=== PATIENT | male | born 1965 | race American Indian/Alaskan Native ===

== ENCOUNTER 2016-10-01 06:40 | Day surgery (SDC) | payer OTHER ==
[~2016-10-01 06:40] MED LIST: Dextrose 5%-0.45% NaCl 1,000 ML IV SCH; Midazolam 1 MG/ML 2 ML SDV ONE; Sodium Chloride 0.9% 10 ML Syringe FLUSH PRN; fentaNYL 100 MCG/2 ML SDV ONE
[2016-10-01] MEDS ORDERED: fentaNYL 100 MCG/2 ML SDV IV ONE ×4 (07:24→17:03)
[2016-10-01] MEDS ORDERED: Midazolam 1 MG/ML 2 ML SDV IV ONE ×7 (07:25→17:03)
--- NOTE | 2016-10-01 08:26 | OR ---
DATE: 10/01/2016 PROCEDURE: Total colonoscopy. INSTRUMENT USED: CF-H180AL Olympus video colonoscope. Olympus distal attachment device. PREMEDICATIONS: Fentanyl 125 mcg intravenous, Versed 4 mg intravenous. Nasal O2 cannula The procedure was done under pulse oximetry, BP recording, and satellite project site monitor. INDICATION: The patient with Hemoccult positive stools unexplained. Colonoscopic examination is done for detection of any polypoid lesions and removal, endoscopic hemostasis therapy if needed. DESCRIPTION OF PROCEDURE: Initial rectal exam was unremarkable. Rigid anoscopy showed small internal hemorrhoids without bleeding from them. The colonoscope was passed with ease. Few scattered diverticula were noted. The scope was passed with ease up to the ileocecal area, photographs were taken of the normal-appearing cecum, identified by landmarks of appendiceal orifice and double-bulged ileocecal folds. No bleeding was noted from any of the visualized areas at the commencement of the examination. No stricture. No vascular ectasia. No large isolated ulcerations seen. No evidence of diffuse inflammatory bowel disease in the form of friability, contact bleeding, or ulcerations. No polyp or tumor mass identified. Probing the proximal sides of folds and flexures, using adequate distention and clearing of the stool material, withdrawal of the scope was made, cecum to rectum time over 6 minutes. No bleeding was noted from any of the visualized areas at the completion of examination. IMPRESSION: 1. Internal hemorrhoids. 2. Diverticulosis. The patient tolerated the procedure well. [facility] /[id number]
--- NOTE | 2016-10-01 09:14 | LETTER ---
10/01/2016 Jennifer Cox MD [facility] [address] [place] [address] RE: BARBARA HALL : [address] Cox: Mr. Barbara Hall had colonoscopic examination today and he tolerated the procedure well. There were no bleeding areas noted, has Hemoccult positive stools. He also has difficulties of heartburn, on long-term acid suppressants. He is scheduled for esophagogastroduodenoscopy next week. I herewith send a copy of the endoscopy note and photographs for your review. Thank you. Sincerely, [facility] /[id number]
[2016-10-01 09:24] VITALS: BP 108/80
== END 2016-10-01 09:35 | disposition home or self-care (01) ==
LOC: DL.ENDO 06:40
PROVIDERS: ATTEND Internal Medicine Gastroenterology
DX: K57.30 Diverticulosis of large intestine without perforation or abscess without bleeding (principal); K64.8 Other hemorrhoids; Z88.8 Allergy status to other drugs, medicaments and biological substances; I10 Essential (primary) hypertension; E78.5 Hyperlipidemia, unspecified; E11.9 Type 2 diabetes mellitus without complications; F17.210 Nicotine dependence, cigarettes, uncomplicated; J44.9 Chronic obstructive pulmonary disease, unspecified; I25.10 Atherosclerotic heart disease of native coronary artery without angina pectoris; Z98.890 Other specified postprocedural states; Z79.82 Long term (current) use of aspirin; Z79.899 Other long term (current) drug therapy; Z72.0 Tobacco use
CPT/HCPCS: 45378; J2250; J3010; J7042

== ENCOUNTER 2016-10-07 05:42 | Day surgery (SDC) | payer OTHER ==
[2016-10-07] MEDS ORDERED: Midazolam 1 MG/ML 2 ML SDV ONE (06:14)
[2016-10-07] MEDS ORDERED: fentaNYL 100 MCG/2 ML SDV ONE (06:14)
[2016-10-07] MEDS ORDERED: Sodium Chloride 0.9% 10 ML Syringe FLUSH PRN (06:23)
[2016-10-07] MEDS ORDERED: Dextrose 5%-0.45% NaCl 1,000 ML IV SCH (06:30)
[2016-10-07] MEDS ORDERED: fentaNYL 100 MCG/2 ML SDV IV ONE ×3 (06:34→16:38)
[2016-10-07] MEDS ORDERED: Midazolam 1 MG/ML 2 ML SDV IV ONE ×3 (06:35→16:38)
[2016-10-07 08:37] VITALS: BP 120/77
--- NOTE | 2016-10-07 10:53 | OR ---
{null, DATE: 10/07/2016 PROCEDURE: Esophagogastroduodenoscopy and multiple pinch biopsies. INSTRUMENT USED: GIF-H180 Olympus video panendoscope. PREMEDICATIONS: No oral topical anesthesia used. Fentanyl 100 mcg intravenous, Versed 2 mg intravenous. The procedure was done under pulse oximetry, BP recording, and cardiac monitoring. INDICATION: The patient with persistent heartburn, unexplained, and not responsive to medical measures, on acid suppressants. Also, has Hemoccult positive stools, and colonoscopy negative for any bleeding areas. Esophagogastroduodenoscopy is performed for detection of any active erosive lesions, Bryan esophagus and/or malignancy also under consideration, H. pylori status to be determined, endoscopic hemostasis therapy if needed. DESCRIPTION OF PROCEDURE: The scope was passed with ease. Adequate visualization of the esophagus was made from proximal to distal areas. No upper esophageal lesions identified. No distal esophageal stricture. No uphill or downhill esophageal varices. No Joellen-Gresham tear. No evidence of erosive esophagitis by [place] criteria. No esophageal polyp or tumor mass identified. Z-line was seen at around 42 cm distal to the oral verge, configuration consistent with grade 1 by ZAP classification. Grade A erosive changes were noted by [place] criteria. No esophageal polyp or tumor mass identified. No proximal gastric varices noted. Gastric fundus examination by retroflexion showed no polypoid lesions. No gastric ulcer, malignant mass, or vascular ectasia identified. Duodenal bulb showed no ulcer. Visualized second part of the duodenum was unremarkable. Multiple pinch biopsies were taken from the gastric antrum and proximal body and sent for PyloriTek test for H. pylori, and if negative in an hour, tissue is to be sent for histopathology. No bleeding was noted from any of the visualized areas at the completion of examination. Photographs were taken of the duodenal bulb, gastric antrum, fundus, and distal esophagus. IMPRESSION: Grade A gastroesophageal reflux disease. The patient tolerated the procedure well. [facility] /[id number] }
--- NOTE | 2016-10-07 12:45 | LETTER ---
{null, 10/07/2016 Jennifer Cox MD [facility] [address] [place] [address] RE: BARBARA HALL : [address] Cox: Mr. Barbara Hall had esophagogastroduodenoscopy done this morning and he tolerated the procedure well. I herewith send a copy of the endoscopy note and photographs for your review. He has been recommended to take regularly ranitidine now 150 mg p.o. b.i.d. Thank you. Sincerely, [facility] /[id number] }
== END 2016-10-07 08:45 | disposition home or self-care (01) ==
LOC: DL.ENDO 05:42
PROVIDERS: ATTEND Internal Medicine Gastroenterology
DX: K21.9 Gastro-esophageal reflux disease without esophagitis (principal); I10 Essential (primary) hypertension; E78.5 Hyperlipidemia, unspecified; E11.9 Type 2 diabetes mellitus without complications; J44.9 Chronic obstructive pulmonary disease, unspecified; Z79.82 Long term (current) use of aspirin; Z79.84 Long term (current) use of oral hypoglycemic drugs; Z79.899 Other long term (current) drug therapy; I25.10 Atherosclerotic heart disease of native coronary artery without angina pectoris; Z88.8 Allergy status to other drugs, medicaments and biological substances; F17.210 Nicotine dependence, cigarettes, uncomplicated; Z98.890 Other specified postprocedural states; Z72.0 Tobacco use
CPT/HCPCS: 43239; J2250; J3010; J7042

== ENCOUNTER 2017-09-08 19:50 | Emergency (ER) | payer OTHER ==
[2017-09-08] MEDS ORDERED: LORazepam 0.5 MG Tab PO ONE (19:51)
[2017-09-08 19:55] VITALS: BP 140/104
--- NOTE | 2017-09-08 20:14 | EDM.PDOC ---
ED HPI GENERAL MEDICAL PROBLEM - General Chief Complaint: Respiratory Problem Stated Complaint: [id number] SOB CHEST CRAMPS Time Seen by Provider: 09/08/17 20:11 Source of Information: Reports: Patient History Limitations: Reports: No Limitations - History of Present Illness INITIAL COMMENTS - FREE TEXT/NARRATIVE: been having left low chest cramping sensation since friday after moving cabinets. today got SOB feels congested and just stopped smoking 2 days ago too. been feeling chilly on off but no shakiness. states has copd & asthma reason why he quit smoking. Bilateral Chest Pain Score (Numeric/FACES): 2 - Related Data Allergies Allergy/AdvReac Type Severity Reaction Status Date / Time aspirin Allergy Bleeding Verified 09/08/17 19:55 naproxen Allergy Bleeding Verified 09/08/17 19:55 Home Meds: Home Meds Aspirin [Adult Low Dose Aspirin EC] 81 mg PO DAILY 08/17/13 [History] Fenofibric Acid [Fibricor] 135 mg PO DAILY 08/17/13 [History] Isosorbide Mononitrate [Imdur] 30 mg PO DAILY 08/17/13 [History] Metoprolol Tartrate 50 mg PO DAILY 08/17/13 [History] Montelukast Sodium 10 mg PO DAILY PRN 08/17/13 [History] Metformin/Sitagliptin 500 mg PO DAILY 04/08/15 [History] Rosuvastatin Calcium [Crestor] 40 mg PO BEDTIME 04/08/15 [History] amLODIPine Besylate [Amlodipine Besylate] 10 mg PO DAILY 04/08/15 [History] glyBURIDE [Glyburide] 4 tab PO DAILY 04/08/15 [History] Varenicline Tartrate [Chantix] 1 tab PO ASDIRECTED 09/30/16 [History] Albuterol/Ipratropium [Combivent Respimat] 1 puff IH BID 09/08/17 [History] Ergocalciferol (Vitamin D2) [Vitamin D2] 50,000 unit PO DAILY 09/08/17 [History] Hydrochlorothiazide 25 mg PO DAILY 09/08/17 [History] Insulin Detemir [Levemir] 15 unit SUBCUT DAILY 09/08/17 [History] Mometasone/Formoterol [Dulera 200-5 MCG] 2 puff INH BID 09/08/17 [History] Omeprazole 20 mg PO DAILY 09/08/17 [History] Saxagliptin HCl [Onglyza] 5 mg PO DAILY 09/08/17 [History] metFORMIN HCl [Metformin HCl] 500 mg PO BEDTIME 09/08/17 [History] metFORMIN HCl [Metformin HCl] 750 mg PO QAM 09/08/17 [History] Past Medical History HEENT History: Reports: Impaired Vision, Other (See Below) Other HEENT History: WEARS READING GLASSES PRN Cardiovascular History: Reports: CAD, High Cholesterol, Hypertension Respiratory History: Reports: Asthma, COPD Gastrointestinal History: Reports: None Genitourinary History: Reports: None Musculoskeletal History: Reports: None Neurological History: Reports: None Psychiatric History: Reports: None Endocrine/Metabolic History: Reports: Diabetes, Type II, Vitamin D Deficiency Hematologic History: Reports: None Immunologic History: Reports: None Oncologic (Cancer) History: Reports: None Dermatologic History: Reports: None - Infectious Disease History Infectious Disease History: Reports: Chicken Pox - Past Surgical History Head Surgeries/Procedures: Reports: None HEENT Surgical History: Reports: None Cardiovascular Surgical History: Reports: Other (See Below) Other Cardiovascular Surgeries/Procedures: CARDIAC CATH Respiratory Surgical History: Reports: None GI Surgical History: Reports: None Male Surgical History: Reports: None Endocrine Surgical History: Reports: None Neurological Surgical History: Reports: None Musculoskeletal Surgical History: Reports: Shoulder Surgery Other Musculoskeletal Surgeries/Procedures:: rotator cuffs. RIGHT SHOULDER SCOPE Dermatological Surgical History: Reports: None Social & Family History - Family History Family Medical History: Noncontributory - Tobacco Use Smoking Status *Q: Former Smoker Years of Tobacco use: 10 Packs/Tins Daily: 1.5 Used Tobacco, but Quit: Yes Month/Year Tobacco Last Used: 2 days ago Second Hand Smoke Exposure: Yes - Caffeine Use Caffeine Use: Reports: Coffee Other Caffeine Use: AVERAGE OF 4 CUPS DAILY - Alcohol Use Days Per Week of Alcohol Use: 3 Number of Drinks Per Day: 2 Total Drinks Per Week: 6 - Recreational Drug Use Recreational Drug Use: No Drug Use in Last 12 Months: No ED ROS GENERAL - Review of Systems Review Of Systems: ROS reveals no pertinent complaints other than HPI. ED EXAM, GENERAL - Physical Exam Exam: See Below Exam Limited By: No Limitations General Appearance: Alert, WD/WN, Mild Distress, Other (distraught) Ears: Hearing Grossly Normal Throat/Mouth: Normal Voice, No Airway Compromise Head: Atraumatic Neck: Non-Tender, Full Range of Motion Respiratory/Chest: No Respiratory Distress, No Accessory Muscle Use, Rhonchi. No: Decreased Breath Sounds Cardiovascular: Regular Rate, Rhythm GI/Abdominal: Soft, Non-Tender Neurological: Alert, Oriented, Normal Cognition, Normal Gait, No Motor/Sensory Deficits Psychiatric: Flat Affect Skin Exam: Warm, Dry, Normal Color Lymphatic: No Adenopathy Course - Vital Signs Last Recorded V/S: Last Vital Signs Temp 36.9 C 09/08/17 19:52 Pulse 130 H 09/08/17 19:52 Resp 20 09/08/17 19:52 BP 140/104 H 09/08/17 19:52 Pulse Ox 98 09/08/17 19:52 - Orders/Labs/Meds Labs: Laboratory Tests 09/08/17 09/08/17 09/08/17 Range/Units 20:04 20:04 20:04 WBC 4.5 L (5.0-10.0) 10^3/uL RBC 5.63 (4.6-6.2) 10^6/uL Hgb 17.0 (14.0-18.0) g/dL Hct 46.9 (40.0-54.0) % MCV 83.3 D (80-100) fL MCH 30.2 (27.0-34.0) pg MCHC 36.2 H (33.0-35.0) g/dL Plt Count 121 L (150-450) 10^3/uL Neut % (Auto) 73.5 (42.2-75.2) % Lymph % (Auto) 14.0 L (20.5-50.1) % [place] % (Auto) 11.4 H (2-8) % Eos % (Auto) 0.4 L (1.0-3.0) % Baso % (Auto) 0.7 (0.0-1.0) % D-Dimer, Quantitative 167 (0-400) ng/mL Sodium 131 L (135-145) mmol/L Potassium 3.5 L (3.6-5.0) mmol/L Chloride 95 L (101-111) mmol/L Carbon Dioxide 24.0 (21.0-31.0) mmol/L Anion Gap 15.5 BUN 20 H (7-18) mg/dL Creatinine 1.1 (0.6-1.3) mg/dL Est Cr Clr Drug Dosing 91.76 mL/min Estimated GFR (MDRD) > 60 BUN/Creatinine Ratio 18.18 Glucose 302 H (74-105) mg/dL Calcium 9.1 (8.4-10.2) mg/dl Total Bilirubin 0.9 (0.2-1.0) mg/dL AST 70 H (10-42) IU/L ALT 81 H (10-60) IU/L Alkaline Phosphatase 60 (42-121) IU/L Troponin I < 0.02 (0.00-0.02) ng/ml Total Protein 7.6 (6.7-8.2) g/dl Albumin 4.4 (3.2-5.5) g/dl Globulin 3.2 Albumin/Globulin Ratio 1.38 Meds: Medications Discontinued Medications Generic Name Dose Route Start Last Admin Trade Name Freq PRN Reason Stop Dose Admin Lorazepam Confirm 09/08/17 21:56 09/08/17 22:06 Ativan Administered 09/08/17 21:57 Not Given Dose 0.5 mg .ROUTE .STK-MED ONE Lorazepam 0.5 mg 09/08/17 19:51 Ativan PO 09/08/17 19:52 .STK-MED ONE Methylprednisolone Sodium Succinate 125 mg 09/08/17 21:06 09/08/17 21:12 Solu-Medrol IVPUSH 09/08/17 21:07 125 mg ONETIME ONE Administration - Re-Assessments/Exams Free Text/Narrative Re-Assessment/Exam: 09/08/17 21:53 re-exam; s/p solumedrol = slight improvement. results discussed with pt who is pain free but still on-off sob, feels like trying to cough up but nothing comes out. has nebs at home, Departure - Departure Time of Disposition: 22:00 Disposition: Home, Self-Care 01 Condition: Good Clinical Impression: Bronchitis Exacerbation of asthma Qualifiers: Asthma severity: mild Asthma persistence: unspecified Qualified Code(s): J45.901 - Unspecified asthma with (acute) exacerbation - Discharge Information Instructions: Upper Respiratory Infection, Adult, [id number] Referrals: Jennifer Cox MD [Primary Care Provider] - Forms: ED Department Discharge Additional Instructions: 1) continue nebs at home 2) don't sleep flat at night 3) see clinic tomorrow if not better 4) return if there is any change or concern rx given; medrol dospak rx togo; ativan 0.5mg x1
[2017-09-08 20:32] LABS: ANION GAP 15.5; CHLORIDE,CL 95 mmol/L (101-111); SODIUM,NA 131 mmol/L (135-145)
[2017-09-08] MEDS ORDERED: methylPREDNISolone Sodium Succinate 125 MG/2 ML SDV IVPUSH ONE (21:06)
[2017-09-08] MEDS ORDERED: LORazepam 0.5 MG Tab ONE (21:56)
--- NOTE | 2017-09-09 19:28 | EKG ---
09/08/2017 - BARBARA ROLLINS I reviewed the EKG and agree with the machine's reading. [facility] /[id number]
== END 2017-09-08 22:05 | disposition home or self-care (01) ==
LOC: DL.ED 19:50
DX: J45.901 Unspecified asthma with (acute) exacerbation (principal); E78.00 Pure hypercholesterolemia, unspecified; I10 Essential (primary) hypertension; E11.9 Type 2 diabetes mellitus without complications; Z88.6 Allergy status to analgesic agent; Z79.899 Other long term (current) drug therapy; Z79.82 Long term (current) use of aspirin; Z79.4 Long term (current) use of insulin; Z87.891 Personal history of nicotine dependence
CPT/HCPCS: 36415; 71045; 80053; 84484; 85025; 85379; 93005; 96374; 99285; A9270; J2930

== ENCOUNTER 2019-06-22 22:10 | Emergency (ER) | payer OTHER ==
[2019-06-22] MEDS ORDERED: Albuterol 0.083% 2.5 MG/3 ML Neb Soln INH ONE (22:11)
[2019-06-22] MEDS ORDERED: methylPREDNISolone Sodium Succinate 125 MG/2 ML SDV IVPUSH ONE (22:19)
[2019-06-22] MEDS ORDERED: Albuterol/Ipratropium 3.0-0.5 MG/3 ML Neb Soln NEB ONE (22:32)
[2019-06-22] MEDS ORDERED: Albuterol 0.083% 2.5 MG/3 ML Neb Soln NEB ONE (22:43)
[2019-06-22 23:15] LABS: ANION GAP 19.6; CHLORIDE,CL 89 mmol/L (101-111); SODIUM,NA 126 mmol/L (135-145)
[2019-06-22] MEDS ORDERED: Albuterol 0.083% 2.5 MG/3 ML Neb Soln ONE (23:52)
--- NOTE | 2019-06-22 23:54 | EDM.PDOC ---
ED HPI GENERAL MEDICAL PROBLEM - General Chief Complaint: Drug or Alcohol Abuse Stated Complaint: DUI MEDICAL CLEARANCE Time Seen by Provider: 06/22/19 22:30 Source of Information: Reports: Patient, Police History Limitations: Reports: Intoxication, Uncooperative - History of Present Illness INITIAL COMMENTS - FREE TEXT/NARRATIVE: ED via [facility] for medical clearance. [place] reported attempted to pull patient over on [facility] and patient did not stop until at [facility] then reported telling officer that [place] and now couldn' t be picked up. Officer reported that he still could be charged Patient then began to complain of difficulty breathing, No chest pain. Reported hx COPD. 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 (see below) Other Treatments TOOLING SUPERVISOR: none - Related Data Allergies Allergy/AdvReac Type Severity Reaction Status Date / Time aspirin Allergy Bleeding Verified 09/08/17 19:55 naproxen Allergy Bleeding Verified 09/08/17 19:55 Home Meds: Home Meds Aspirin [Adult Low Dose Aspirin EC] 81 mg PO DAILY 08/17/13 [History] Fenofibric Acid [Fibricor] 135 mg PO DAILY 08/17/13 [History] Isosorbide Mononitrate [Imdur] 30 mg PO DAILY 08/17/13 [History] Metoprolol Tartrate 50 mg PO DAILY 08/17/13 [History] Montelukast Sodium 10 mg PO DAILY PRN 08/17/13 [History] Metformin/Sitagliptin 500 mg PO DAILY 04/08/15 [History] Rosuvastatin Calcium [Crestor] 40 mg PO BEDTIME 04/08/15 [History] amLODIPine Besylate [Amlodipine Besylate] 10 mg PO DAILY 04/08/15 [History] glyBURIDE [Glyburide] 4 tab PO DAILY 04/08/15 [History] Varenicline Tartrate [Chantix] 1 tab PO ASDIRECTED 09/30/16 [History] Albuterol/Ipratropium [Combivent Respimat] 1 puff IH BID 09/08/17 [History] Ergocalciferol (Vitamin D2) [Vitamin D2] 50,000 unit PO DAILY 09/08/17 [History] Insulin Detemir [Levemir] 15 unit SUBCUT DAILY 09/08/17 [History] Mometasone/Formoterol [Dulera 200-5 MCG] 2 puff INH BID 09/08/17 [History] Omeprazole 20 mg PO DAILY 09/08/17 [History] Saxagliptin HCl [Onglyza] 5 mg PO DAILY 09/08/17 [History] hydroCHLOROthiazide [Hydrochlorothiazide] 25 mg PO DAILY 09/08/17 [History] metFORMIN HCl [Metformin HCl] 500 mg PO BEDTIME 09/08/17 [History] metFORMIN HCl [Metformin HCl] 750 mg PO QAM 09/08/17 [History] Past Medical History HEENT History: Reports: Impaired Vision, Other (See Below) Other HEENT History: WEARS READING GLASSES PRN Cardiovascular History: Reports: CAD, High Cholesterol, Hypertension Respiratory History: Reports: Asthma, COPD Gastrointestinal History: Reports: None Genitourinary History: Reports: None Musculoskeletal History: Reports: None Neurological History: Reports: None Psychiatric History: Reports: None Endocrine/Metabolic History: Reports: Diabetes, Type II, Vitamin D Deficiency Hematologic History: Reports: None Immunologic History: Reports: None Oncologic (Cancer) History: Reports: None Dermatologic History: Reports: None - Infectious Disease History Infectious Disease History: Reports: Chicken Pox - Past Surgical History Head Surgeries/Procedures: Reports: None HEENT Surgical History: Reports: None Cardiovascular Surgical History: Reports: Other (See Below) Other Cardiovascular Surgeries/Procedures: CARDIAC CATH Respiratory Surgical History: Reports: None GI Surgical History: Reports: None Male Surgical History: Reports: None Endocrine Surgical History: Reports: None Neurological Surgical History: Reports: None Musculoskeletal Surgical History: Reports: Shoulder Surgery Other Musculoskeletal Surgeries/Procedures:: rotator cuffs. RIGHT SHOULDER SCOPE Dermatological Surgical History: Reports: None Social & Family History - Family History Family Medical History: Noncontributory - Tobacco Use Smoking Status *Q: Former Smoker Used Tobacco, but Quit: Yes Month/Year Tobacco Last Used: 05/1999 - Caffeine Use Caffeine Use: Reports: Coffee Other Caffeine Use: AVERAGE OF 4 CUPS DAILY - Alcohol Use Days Per Week of Alcohol Use: 7 Number of Drinks Per Day: 6 Total Drinks Per Week: 42 - Recreational Drug Use Recreational Drug Use: No ED ROS GENERAL - Review of Systems Review Of Systems: See Below Constitutional: Denies: Fever, Chills HEENT: Reports: No Symptoms Respiratory: Reports: Shortness of Breath, Wheezing Cardiovascular: Reports: No Symptoms Endocrine: Reports: No Symptoms Neurological: Reports: No Symptoms Psychiatric: Reports: Other (admits to drinking, no amount given) - Physical Exam Exam: See Below Exam Limited By: No Limitations General Appearance: Alert, Mild Distress (forced expiratory wheeze, significantly less when stff not in immediate area of patient.), Thin Eye Exam: Bilateral Eye: EOMI, Nystagmus Ears: Normal External Exam Nose: Normal Inspection Throat/Mouth: Normal Inspection, Normal Voice Head Exam: Atraumatic, Normocephalic Neck: Normal Inspection Respiratory/Chest: Normal Breath Sounds (good air exchange), Decreased Breath Sounds, Wheezing (forced expiratory ). No: Accessory Muscle Use, Prolonged Expiration Cardiovascular: Normal Peripheral Pulses, Regular Rate, Rhythm, No Edema GI/Abdominal: Normal Bowel Sounds, Soft Neuro Exam (Abbreviated): Alert, Oriented, Normal Cognition, Inattentive Back Exam: Full Range of Motion Extremities: Normal Inspection Psychiatric: Anxious, Other (biligerant on presentation) Skin Exam: Warm, Dry, Intact, Normal Color Course - Vital Signs Last Recorded V/S: Last Vital Signs Temp 97.2 F 06/22/19 23:35 Pulse 97 06/22/19 23:59 Resp 20 06/22/19 23:59 BP 154/87 H 06/22/19 23:59 Pulse Ox 97 06/22/19 23:59 - Orders/Labs/Meds Labs: Laboratory Tests 06/22/19 06/22/19 Range/Units 22:27 22:27 WBC 9.7 (5.0-10.0) 10^3/uL RBC 5.54 (4.6-6.2) 10^6/uL Hgb 16.2 (14.0-18.0) g/dL Hct 45.5 (40.0-54.0) % MCV 82.1 (80-100) fL MCH 29.2 (27.0-34.0) pg MCHC 35.6 H (33.0-35.0) g/dL Plt Count 198 D (150-450) 10^3/uL Neut % (Auto) 56.5 (42.2-75.2) % Lymph % (Auto) 29.6 (20.5-50.1) % [place] % (Auto) 13.0 H (2-8) % Eos % (Auto) 0.4 L (1.0-3.0) % Baso % (Auto) 0.5 (0.0-1.0) % Sodium 126 L (135-145) mmol/L Potassium 3.6 (3.6-5.0) mmol/L Chloride 89 L (101-111) mmol/L Carbon Dioxide 21.0 (21.0-31.0) mmol/L Anion Gap 19.6 BUN 15 (7-18) mg/dL Creatinine 0.9 (0.6-1.3) mg/dL Est Cr Clr Drug Dosing 109.54 mL/min Estimated GFR (MDRD) > 60 BUN/Creatinine Ratio 16.66 Glucose 343 H (74-105) mg/dL Calcium 9.2 (8.4-10.2) mg/dl Total Bilirubin 0.8 (0.2-1.0) mg/dL AST 54 H (10-42) IU/L ALT 63 H (10-60) IU/L Alkaline Phosphatase 71 (42-121) IU/L Total Protein 8.7 H (6.7-8.2) g/dl Albumin 4.5 (3.2-5.5) g/dl Globulin 4.2 Albumin/Globulin Ratio 1.07 Ethyl Alcohol 264 mg/dL Meds: Medications Discontinued Medications Generic Name Dose Route Start Last Admin Trade Name Rashiq PRN Reason Stop Dose Admin Albuterol 2.5 mg 06/22/19 22:43 06/23/19 00:11 Proventil Neb Soln NEB 06/22/19 22:44 Not Given ONETIME ONE Albuterol Confirm 06/22/19 23:52 06/23/19 00:11 Proventil Neb Soln Administered 06/22/19 23:53 Not Given Dose 5 mg .ROUTE .STK-MED ONE Albuterol 5 mg 06/22/19 22:11 Proventil Neb Soln INH 06/22/19 22:12 .STK-MED ONE Albuterol/Ipratropium 3 ml 06/22/19 22:32 06/22/19 22:15 Duoneb 3.0-0.5 Mg/3 Ml NEB 06/22/19 22:33 3 ml ONETIME ONE Administration Methylprednisolone Sodium Succinate 125 mg 06/22/19 22:19 06/22/19 22:37 Solu-Medrol IVPUSH 01/28/20 22:20 125 mg ONETIME ONE Administration - Re-Assessments/Exams Free Text/Narrative Re-Assessment/Exam: Good oxygen sats throughout ED visit. Discussed with officer patient does not have immediate access to routine medications. Patient seems overly dramatic with symptoms and complaint than with clinical findings. Multiple co morbidities and high risk without medications. Unable to clear medically for continued incarceration. Does not meet qualification for acute admission. [place] able to contact family that will [facility] him up [facility]. Departure - Departure Time of Disposition: 23:48 Disposition: Home, Self-Care 01 Condition: Good Clinical Impression: Alcohol abuse, COPD exacerbation Alcohol intoxication Qualifiers: Complication of substance-induced condition: uncomplicated Qualified Code(s): F10.920 - Alcohol use, unspecified with intoxication, uncomplicated - Discharge Information *PRESCRIPTION DRUG MONITORING PROGRAM REVIEWED*: No *COPY OF PRESCRIPTION DRUG MONITORING REPORT IN PATIENT [place]: No Instructions: Alcohol Use Disorder, Chronic Obstructive Pulmonary Disease, Easy -to-Read Referrals: PCP,Unobtain [Primary Care Provider] - Forms: ED Department Discharge Additional Instructions: continue home medications albuterol nebulizer every 4 hours follow up if symptoms worsen Sepsis Event Note - Evaluation Sepsis Screening Result: No Definite Risk - Focused Exam Date Exam was Performed: 06/24/19 Time Exam was Performed: 23:00
[2019-06-23 00:12] VITALS: BP 154/87; PULSE 97
== END 2019-06-23 00:01 | disposition home or self-care (01) ==
LOC: DL.ED 22:10
DX: J44.1 Chronic obstructive pulmonary disease with (acute) exacerbation (principal); F10.120 Alcohol abuse with intoxication, uncomplicated; I25.10 Atherosclerotic heart disease of native coronary artery without angina pectoris; E78.00 Pure hypercholesterolemia, unspecified; I10 Essential (primary) hypertension; E11.9 Type 2 diabetes mellitus without complications; Y90.8 Blood alcohol level of 240 mg/100 ml or more; Z88.6 Allergy status to analgesic agent; Z79.82 Long term (current) use of aspirin; Z79.899 Other long term (current) drug therapy; Z79.4 Long term (current) use of insulin; Z79.51 Long term (current) use of inhaled steroids; Z87.891 Personal history of nicotine dependence
CPT/HCPCS: 36415; 80053; 80320; 85025; 94640; 96374; 99283; J2930; G0480; J7613-GY; J7620-GY

== ENCOUNTER 2021-11-14 14:59 | Emergency (ER) | payer BC, MEDICAID, OTHER ==
[2021-11-14] MEDS: Sodium Chloride 0.9% 1,000 ML IV ONE (16:01)
[2021-11-14 16:24] LABS: PTT,PARTIAL THROMBOPLSTIN TIME 22.8 SEC (22.0-34.0)
[2021-11-14 16:29] LABS: CHLORIDE,CL 97 mmol/L (98-107); SODIUM,NA 134 mmol/L (136-145)
[2021-11-14 16:32] LABS: CORONAVIRUS COVID-19 NAA NEGATIVE (NEGATIVE)
[2021-11-14 17:09] LABS: ESTIMATED GFR 46 mL/min (>=60)
[2021-11-14] MEDS: MVI, Adult with Vitamin K 10 ML, Thiamine 100 MG, Folic Acid 1 MG in Lactated Ringers 1... IV ONE ×4 (17:14)
[2021-11-14] MEDS ORDERED: 50% Dextrose in Water 50 ML Syringe IVPUSH PRN (17:43)
[2021-11-14] MEDS ORDERED: Glucagon,Human Recombinant 1 MG Vial IM PRN (17:43)
[2021-11-14] MEDS: Insulin Regular, Human 100 Units/ML 3 ML Vial IV ONE (19:00)
[2021-11-14] MEDS: Magnesium Sulfate/Water 2 GM in Premix Bag 1 BAG IV ONE (19:01)
[2021-11-14 19:31] VITALS: BP 120/83; PULSE 82
[2021-11-14 19:35] LABS: ANION GAP 10.2 mEq/L (7-13)
== END 2021-11-14 20:20 | disposition home or self-care (01) ==
LOC: DL.ED 14:59
DX: R07.89 Other chest pain (principal); E11.65 Type 2 diabetes mellitus with hyperglycemia; E86.0 Dehydration; I25.10 Atherosclerotic heart disease of native coronary artery without angina pectoris; E78.00 Pure hypercholesterolemia, unspecified; I10 Essential (primary) hypertension; J44.9 Chronic obstructive pulmonary disease, unspecified; Z79.4 Long term (current) use of insulin; Z79.899 Other long term (current) drug therapy; Z20.822 Contact with and (suspected) exposure to COVID-19
CPT/HCPCS: 0240U; 36415; 71045; 80048; 80053; 82009; 82150; 82947; 83605; 83690; 83735; 83880; 84484; 85025; 85379; 85610; 85730; 86140; 93005; 93010; 96361; 96365; 96367; 99284; 99285; J1815; J3411; J3475; J7030; J7120; J3490

== ENCOUNTER 2022-10-08 15:20 | Emergency (ER) | payer MEDICAID ==
[2022-10-08] MEDS ORDERED: Sodium Chloride 0.9% 10 ML Syringe FLUSH PRN (15:41)
[2022-10-08 16:09] LABS: BASOPHILS PERCENT AUTO 0.3 % (0.0-1.0); EOSINOPHILS PERCENT AUTO 0.3 % (1.0-3.0); HEMATOCRIT 39.9 % (40.0-54.0); HEMOGLOBIN 14.5 g/dL (14.0-18.0); LYMPHOCYTES PERCENT AUTO 21.6 % (20.5-50.1); MEAN CORPUSCULAR HGB CONC 36.3 g/dL (33.0-35.0); MEAN CORPUSCULAR VOLUME 85.4 fL (80-100); MONOCYTES PERCENT AUTO 11.8 % (2-8); PLATELET COUNT,PLT 219 10^3/uL (150-450); RED BLOOD CELL COUNT 4.67 10^6/uL (4.6-6.2)
[2022-10-08 16:13] VITALS: BP 116/80; PULSE 100
[2022-10-08 16:29] LABS: LACTIC ACID 2.2 mmol/L (0.4-2.0)
[2022-10-08 16:35] LABS: A/G RATIO 1.2; ALANINE AMINOTRANSFERASE,ALT 59 U/L (16-63); ALBUMIN 3.8 g/dL (3.4-5.0); ALKALINE PHOSPHATASE 77 U/L (46-116); ASPARTATE AMNIOTRANSFERASE,AST 47 U/L (15-37); BILIRUBIN TOTAL 0.6 mg/dL (0.2-1.0); BLOOD UREA NITROGEN,BUN 17 mg/dL (7-18); BUN/CREATININE RATIO 12.7 (No establ ref range); CALCIUM 9.4 mg/dL (8.5-10.1); CHLORIDE,CL 93 mmol/L (98-107); CREATININE 1.34 mg/dL (0.70-1.30); EST CRCL DRUG DOSING (CG) 70.94 mL/min; GLUCOSE RANDOM 229 mg/dL (70-99); MAGNESIUM 1.4 mg/dL (1.8-2.4); PROTEIN TOTAL,TP 7.1 g/dL (6.4-8.2); SODIUM,NA 132 mmol/L (136-145)
[2022-10-08 16:40] LABS: C-REACTIVE PROTEIN < 0.2 mg/dL (0.0-0.9); CARBON DIOXIDE,CO2 29 mmol/L (21-32); ESTIMATED GFR 61 mL/min (>=60)
[2022-10-08] MEDS ORDERED: Sodium Chloride 0.9% 500 ML IV SCH (16:45)
[2022-10-08] MEDS ORDERED: Potassium Chloride 10 MEQ Tab.ER PO ONE (16:45)
== END 2022-10-08 17:23 | disposition home or self-care (01) ==
LOC: DL.ED 15:20
DX: E86.0 Dehydration (principal); E87.6 Hypokalemia; I25.10 Atherosclerotic heart disease of native coronary artery without angina pectoris; E78.00 Pure hypercholesterolemia, unspecified; I10 Essential (primary) hypertension; J44.9 Chronic obstructive pulmonary disease, unspecified; E11.9 Type 2 diabetes mellitus without complications; Z88.8 Allergy status to other drugs, medicaments and biological substances; Z79.899 Other long term (current) drug therapy; Z79.4 Long term (current) use of insulin
CPT/HCPCS: 36415; 71046; 80053; 83605; 83735; 84484; 85025; 85379; 86140; 93005; 93010; 99284; 99285; A9270-GY; J3490; J7040

== ENCOUNTER 2022-10-11 15:42 | Inpatient (IN) | payer MEDICAID ==
[~2022-10-11 15:42] MED LIST changes: -Dextrose 5%-0.45% NaCl 1,000 ML IV SCH; -Midazolam 1 MG/ML 2 ML SDV ONE; -fentaNYL 100 MCG/2 ML SDV ONE
[2022-10-11 16:11] LABS: BASOPHILS PERCENT AUTO 0.3 % (0.0-1.0); EOSINOPHILS PERCENT AUTO 0.7 % (1.0-3.0); HEMATOCRIT 44.1 % (40.0-54.0); HEMOGLOBIN 16.5 g/dL (14.0-18.0); LYMPHOCYTES PERCENT AUTO 19.8 % (20.5-50.1); MEAN CORPUSCULAR HEMOGLOBIN 31.4 pg (27.0-34.0); MEAN CORPUSCULAR HGB CONC 37.4 g/dL (33.0-35.0); MEAN CORPUSCULAR VOLUME 83.8 fL (80-100); MONOCYTES PERCENT AUTO 14.6 % (2-8); NEUTROPHILS PERCENT AUTO 64.6 % (42.2-75.2); PLATELET COUNT,PLT 237 10^3/uL (150-450); RED BLOOD CELL COUNT 5.26 10^6/uL (4.6-6.2); WHITE BLOOD CELL COUNT,WBC 10.3 10^3/uL (5.0-10.0)
[2022-10-11] MEDS ORDERED: Sodium Chloride 0.9% 1,000 ML IV ONE ×2 (16:13→16:59)
[2022-10-11] MEDS ORDERED: LORazepam 2 MG/ML SDV IVPUSH ONE ×4 (16:22→19:03)
[2022-10-11 16:27] LABS: A/G RATIO 1.1; ALANINE AMINOTRANSFERASE,ALT 78 U/L (16-63); ALBUMIN 4.1 g/dL (3.4-5.0); ALKALINE PHOSPHATASE 69 U/L (46-116); ASPARTATE AMNIOTRANSFERASE,AST 76 U/L (15-37); BILIRUBIN TOTAL 0.9 mg/dL (0.2-1.0); BLOOD UREA NITROGEN,BUN 13 mg/dL (7-18); BUN/CREATININE RATIO 10.6 (No establ ref range); C-REACTIVE PROTEIN 0.2 mg/dL (0.0-0.9); CALCIUM 9.4 mg/dL (8.5-10.1); CARBON DIOXIDE,CO2 29 mmol/L (21-32); CHLORIDE,CL 92 mmol/L (98-107); CREATININE 1.23 mg/dL (0.70-1.30); EST CRCL DRUG DOSING (CG) 77.29 mL/min; GLUCOSE RANDOM 92 mg/dL (70-99); MAGNESIUM 1.5 mg/dL (1.8-2.4); PROTEIN TOTAL,TP 7.8 g/dL (6.4-8.2); SODIUM,NA 131 mmol/L (136-145)
[2022-10-11] MEDS ORDERED: Ketamine 500 mg/10 ML MDV IV ONE ×2 (16:39→16:41)
[2022-10-11 16:42] LABS: ESTIMATED GFR 68 mL/min (>=60); ETHANOL BLOOD MEDICAL < 3 mg/dL (0)
[2022-10-11 16:54] LABS: AMPHETAMINES,URINE NEGATIVE (NEGATIVE); BARBITURATES,URINE NEGATIVE (NEGATIVE); BENZODIAZEPINE,URINE NEGATIVE (NEGATIVE); MDMA (ECSTASY), URINE NEGATIVE (NEGATIVE); METHADONE,URINE NEGATIVE (NEGATIVE); METHAMPHETAMINES,URINE NEGATIVE (NEGATIVE); OPIATES,URINE NEGATIVE (NEGATIVE); OXYCODONE,URINE NEGATIVE (NEGATIVE); PHENCYCLIDINE,URINE NEGATIVE (NEGATIVE); TCA,URINE NEGATIVE (NEGATIVE)
[2022-10-11 17:01] LABS: APPEARANCE,URINE CLEAR (CLEAR); BILIRUBIN,URINE SMALL (NEGATIVE); COLOR,URINE DARK YELLOW (YELLOW); GLUCOSE,URINE 250 (NEGATIVE); KETONES,URINE NEGATIVE (NEGATIVE); LEUKOCYTE ESTERASE,URINE NEGATIVE (NEGATIVE); NITRITE,URINE NEGATIVE (NEGATIVE); OCCULT BLOOD,URINE NEGATIVE (NEGATIVE); PH,URINE 7.5 (5.0-9.0); PROTEIN,URINE TRACE (NEGATIVE)
[2022-10-11 17:02] LABS: LACTIC ACID 2.1 mmol/L (0.4-2.0)
[2022-10-11 17:06] LABS: BACTERIA,URINE FEW /HPF (0-FEW/HPF); EPITHELIAL CELLS,URINE FEW /HPF (NOT SEEN); MUCUS,URINE FEW /LPF (NOT SEEN); RBC,URINE 0-5 /HPF (0-5); WBC,URINE 0-5 /HPF (0-5/HPF)
[2022-10-11] MEDS ORDERED: Potassium Chloride 20 MEQ in Premix Bag 1 BAG IV ONE (18:52)
[2022-10-11] MEDS ORDERED: Flumazenil 0.1 MG/ML 5 ML MDV IVPUSH PRN (19:02)
[2022-10-11] MEDS ORDERED: Haloperidol Lactate 5 MG/ML SDV IVPUSH STA (20:47)
[2022-10-11] MEDS ORDERED: Albuterol/Ipratropium 3.0-0.5 MG/3 ML Neb Soln NEB PRN (21:06)
[2022-10-11] MEDS ORDERED: Polyethylene Glycol 3350 Powder 17 GM Packet PO PRN (21:06)
[2022-10-11] MEDS ORDERED: Ondansetron 4 MG/2 ML SDV IVPUSH PRN (21:06)
[2022-10-11] MEDS ORDERED: Magnesium Hydroxide 400 MG/5 ML Susp 30 ML Cup PO PRN (21:06)
[2022-10-11] MEDS ORDERED: Ketorolac 30 MG/ML SDV IVPUSH PRN (21:06)
[2022-10-11] MEDS ORDERED: MVI, Adult with Vitamin K 10 ML, Folic Acid 1 MG, Thiamine 100 MG in Lactated Ringers 1... IV ONE ×4 (21:09)
[2022-10-11] MEDS ORDERED: cloNIDine 0.1 MG Tab PO PRN (21:09)
[2022-10-11] MEDS ORDERED: Thiamine 100 MG Tab PO ONE (21:09)
[2022-10-11] MEDS ORDERED: Diazepam 5 MG Tab PO PRN (21:09)
[2022-10-11] MEDS ORDERED: Thiamine 100 MG in Sodium Chloride 0.9% 50 ML IV ONE (21:09)
[2022-10-11] MEDS ORDERED: Ziprasidone Mesylate 20 MG Vial IM PRN (21:10)
[2022-10-11] MEDS ORDERED: Pantoprazole 40 MG Vial IVPUSH ONE (21:11)
[2022-10-11] MEDS ORDERED: Metoprolol Tartrate 5 MG/5 ML SDV IVPUSH PRN (21:11)
[2022-10-11] MEDS ORDERED: hydrALAZINE 20 MG/ML SDV IVPUSH PRN (21:11)
[2022-10-11] MEDS ORDERED: Iopamidol 755 Mg/ML 100 ML Bottle IVPUSH ONE (21:46)
[2022-10-12] MEDS: fentaNYL 100 MCG/2 ML SDV IVPUSH PRN ×2 (00:26→05:54)
[2022-10-12] MEDS ORDERED: Pantoprazole 40 MG Tab.CR PO SCH (06:00)
[2022-10-12 06:21] LABS: BASOPHILS PERCENT AUTO 0.1 % (0.0-1.0); EOSINOPHILS PERCENT AUTO 0.8 % (1.0-3.0); HEMATOCRIT 38.2 % (40.0-54.0); HEMOGLOBIN 13.9 g/dL (14.0-18.0); LYMPHOCYTES PERCENT AUTO 18.4 % (20.5-50.1); MEAN CORPUSCULAR HEMOGLOBIN 31.4 pg (27.0-34.0); MEAN CORPUSCULAR HGB CONC 36.4 g/dL (33.0-35.0); MEAN CORPUSCULAR VOLUME 86.4 fL (80-100); MONOCYTES PERCENT AUTO 15.7 % (2-8); PLATELET COUNT,PLT 178 10^3/uL (150-450); RED BLOOD CELL COUNT 4.42 10^6/uL (4.6-6.2); WHITE BLOOD CELL COUNT,WBC 7.8 10^3/uL (5.0-10.0)
[2022-10-12 06:46] LABS: A/G RATIO 1.1; ALBUMIN 3.4 g/dL (3.4-5.0); ANION GAP 12.4 mEq/L (7-13); BILIRUBIN TOTAL 0.8 mg/dL (0.2-1.0); BUN/CREATININE RATIO 10.8 (No establ ref range); C-REACTIVE PROTEIN 0.9 mg/dL (0.0-0.9); CALCIUM 8.5 mg/dL (8.5-10.1); CREATININE 1.11 mg/dL (0.70-1.30); EST CRCL DRUG DOSING (CG) 85.64 mL/min; MAGNESIUM 1.4 mg/dL (1.8-2.4); PHOSPHORUS 3.7 mg/dL (2.6-4.7); POTASSIUM,K 3.4 mmol/L (3.5-5.1); PROTEIN TOTAL,TP 6.5 g/dL (6.4-8.2)
[2022-10-12] MEDS ORDERED: Magnesium Sulfate/Water 2 GM in Premix Bag 1 BAG IV ONE ×2 (10:39→20:11)
[2022-10-12] MEDS ORDERED: MVI, Adult with Vitamin K 10 ML, Folic Acid 1 MG, Thiamine 100 MG in Lactated Ringers 1... IV ONE ×4 (10:52)
[2022-10-12] MEDS ORDERED: Potassium Chloride 20 MEQ in Premix Bag 1 BAG IV ONE (10:53)
[2022-10-12] MEDS: Multivitamin Tab PO SCH (15:50)
[2022-10-12] MEDS: Folic Acid 1 MG Tab PO SCH (15:50)
[2022-10-12] MEDS: Acetaminophen 325 MG Tab PO PRN (16:00)
[2022-10-12 19:29] LABS: A/G RATIO 1.1; ALBUMIN 3.4 g/dL (3.4-5.0); ANION GAP 11.6 mEq/L (7-13); BILIRUBIN TOTAL 0.7 mg/dL (0.2-1.0); BUN/CREATININE RATIO 10.6 (No establ ref range); CALCIUM 8.3 mg/dL (8.5-10.1); CREATININE 1.04 mg/dL (0.70-1.30); EST CRCL DRUG DOSING (CG) 91.41 mL/min; MAGNESIUM 1.7 mg/dL (1.8-2.4); POTASSIUM,K 3.6 mmol/L (3.5-5.1); PROTEIN TOTAL,TP 6.5 g/dL (6.4-8.2)
[2022-10-12] MEDS ORDERED: 50% Dextrose in Water 50 ML Syringe IVPUSH PRN (21:11)
[2022-10-12] MEDS ORDERED: Glucagon,Human Recombinant 1 MG Vial IM PRN (21:11)
[2022-10-12] MEDS ORDERED: Insulin Glarg,Human.Rec.Analog 100 Unit/ML SUBCUT ONE (21:12)
[2022-10-13] MEDS: Acetaminophen 325 MG Tab PO PRN (00:33)
[2022-10-13 06:10] LABS: BASOPHILS PERCENT AUTO 0.4 % (0.0-1.0); EOSINOPHILS PERCENT AUTO 0.9 % (1.0-3.0); HEMATOCRIT 39.2 % (40.0-54.0); HEMOGLOBIN 14.1 g/dL (14.0-18.0); LYMPHOCYTES PERCENT AUTO 27.4 % (20.5-50.1); MEAN CORPUSCULAR HEMOGLOBIN 31.3 pg (27.0-34.0); MEAN CORPUSCULAR VOLUME 87.1 fL (80-100); MONOCYTES PERCENT AUTO 18.8 % (2-8); NEUTROPHILS PERCENT AUTO 52.5 % (42.2-75.2); PLATELET COUNT,PLT 183 10^3/uL (150-450); WHITE BLOOD CELL COUNT,WBC 4.5 10^3/uL (5.0-10.0)
[2022-10-13 06:25] LABS: A/G RATIO 1.1; ALBUMIN 3.4 g/dL (3.4-5.0); ANION GAP 11.6 mEq/L (7-13); BILIRUBIN TOTAL 0.5 mg/dL (0.2-1.0); BUN/CREATININE RATIO 9.2 (No establ ref range); CALCIUM 8.3 mg/dL (8.5-10.1); CREATININE 1.09 mg/dL (0.70-1.30); EST CRCL DRUG DOSING (CG) 87.21 mL/min; MAGNESIUM 1.9 mg/dL (1.8-2.4); POTASSIUM,K 3.6 mmol/L (3.5-5.1); PROTEIN TOTAL,TP 6.6 g/dL (6.4-8.2)
[2022-10-13 06:30] LABS: HEMOGLOBIN A1C 7.6 % (<5.7)
[2022-10-13] MEDS ORDERED: Insulin Lispro 100 Units/ML 3 ML Vial SUBCUT SCH (08:00)
[2022-10-13] MEDS: Multivitamin Tab PO SCH (08:56)
[2022-10-13] MEDS: Folic Acid 1 MG Tab PO SCH (08:59)
[2022-10-13] MEDS ORDERED: glipiZIDE 5 MG Tab.ER PO SCH (09:00)
[2022-10-13] MEDS ORDERED: Spironolactone 25 MG Tab PO SCH (09:00)
[2022-10-13] MEDS ORDERED: Magnesium Oxide 400 MG Tab PO SCH (09:00)
[2022-10-13] MEDS ORDERED: Omeprazole 20 MG Cap.CR PO SCH (09:00)
[2022-10-13] MEDS ORDERED: Isosorbide Mononitrate 30 MG Tab.ER PO SCH (09:00)
[2022-10-13] MEDS ORDERED: Verapamil 240 MG Tab.ER PO SCH (09:00)
[2022-10-13] MEDS ORDERED: Hydrochlorothiazide 25 MG Tab PO SCH (09:00)
[2022-10-13] MEDS ORDERED: Insulin Glarg,Human.Rec.Analog 100 Unit/ML SUBCUT SCH (09:00)
[2022-10-13] MEDS ORDERED: Venlafaxine 37.5 MG Cap.ER PO SCH (09:00)
[2022-10-13] MEDS ORDERED: Pantoprazole 40 MG Tab.CR PO SCH (09:00)
[2022-10-13] MEDS ORDERED: Cholecalciferol (Vitamin D3) 25 MCG Tab PO SCH (09:00)
[2022-10-13] MEDS ORDERED: Alogliptin Benzoate [Alogliptin] 25 MG Tablet PO SCH (09:00)
[2022-10-13 09:03] VITALS: PULSE 90
[2022-10-13 09:04] VITALS: BP 164/85
[2022-10-13] MEDS ORDERED: Montelukast 10 MG Tab PO SCH (21:00)
== END 2022-10-13 10:00 | disposition left against medical advice (07) | DRG 71 ==
LOC: DL.ED 15:42 → DL.MS 18:50 → DL.ED 19:42
PROVIDERS: ADMIT Internal Medicine; ATTEND Internal Medicine
DX: G93.41 Metabolic encephalopathy (principal); E87.1 Hypo-osmolality and hyponatremia; E87.20 Acidosis, unspecified; E78.5 Hyperlipidemia, unspecified; I10 Essential (primary) hypertension; I25.10 Atherosclerotic heart disease of native coronary artery without angina pectoris; J44.9 Chronic obstructive pulmonary disease, unspecified; E11.9 Type 2 diabetes mellitus without complications; J30.9 Allergic rhinitis, unspecified; K21.9 Gastro-esophageal reflux disease without esophagitis; F32.A Depression, unspecified; E86.0 Dehydration; E66.9 Obesity, unspecified; E87.6 Hypokalemia; E87.8 Other disorders of electrolyte and fluid balance, not elsewhere classified; E11.65 Type 2 diabetes mellitus with hyperglycemia; E83.42 Hypomagnesemia; M54.9 Dorsalgia, unspecified; Z68.30 Body mass index [BMI] 30.0-30.9, adult; Z79.899 Other long term (current) drug therapy; Z98.890 Other specified postprocedural states; Z88.8 Allergy status to other drugs, medicaments and biological substances
CPT/HCPCS: 36415; 70450; 70496; 70498; 80053; 80305-QW; 80307; 81001; 82140; 82947; 83036; 83605; 83735; 84100; 84484; 85025; 86140; 93005; 99223; 99233; 99238; A9270-GY; C1758; C9113; J0360; J1630; J1815-GY; J2060; J3010; J3360; J3411; J3475; J3480; J3490; J7030; J7120; Q9967

== ENCOUNTER 2022-10-28 11:56 | Inpatient (IN) | payer MEDICAID ==
[2022-10-28 12:21] LABS: BASOPHILS PERCENT AUTO 0.4 % (0.0-1.0); EOSINOPHILS PERCENT AUTO 1.1 % (1.0-3.0); HEMATOCRIT 42.2 % (40.0-54.0); HEMOGLOBIN 15.5 g/dL (14.0-18.0); MEAN CORPUSCULAR HEMOGLOBIN 31.3 pg (27.0-34.0); MEAN CORPUSCULAR HGB CONC 36.7 g/dL (33.0-35.0); MEAN CORPUSCULAR VOLUME 85.1 fL (80-100); MONOCYTES PERCENT AUTO 14.2 % (2-8); NEUTROPHILS PERCENT AUTO 62.3 % (42.2-75.2); PLATELET COUNT,PLT 183 10^3/uL (150-450); RED BLOOD CELL COUNT 4.96 10^6/uL (4.6-6.2); WHITE BLOOD CELL COUNT,WBC 9.3 10^3/uL (5.0-10.0)
[2022-10-28] MEDS ORDERED: Thiamine 100 MG in Sodium Chloride 0.9% 100 ML IV ONE (12:25)
[2022-10-28] MEDS ORDERED: Sodium Chloride 0.9% 1,000 ML IV ONE ×2 (12:25→12:41)
[2022-10-28] MEDS: Sodium Chloride 0.9% 10 ML Syringe FLUSH PRN ×2 (12:32→20:12)
[2022-10-28 12:46] LABS: LACTIC ACID 1.9 mmol/L (0.4-2.0)
[2022-10-28 12:52] LABS: PTT,PARTIAL THROMBOPLSTIN TIME 23.7 SEC (22.0-34.0)
[2022-10-28 12:55] LABS: A/G RATIO 1.2; ALANINE AMINOTRANSFERASE,ALT 99 U/L (16-63); ALKALINE PHOSPHATASE 66 U/L (46-116); ANION GAP 12.4 mEq/L (7-13); ASPARTATE AMNIOTRANSFERASE,AST 71 U/L (15-37); BILIRUBIN TOTAL 0.8 mg/dL (0.2-1.0); BLOOD UREA NITROGEN,BUN 11 mg/dL (7-18); BUN/CREATININE RATIO 8.1 (No establ ref range); CALCIUM 9.4 mg/dL (8.5-10.1); CARBON DIOXIDE,CO2 30 mmol/L (21-32); CHLORIDE,CL 96 mmol/L (98-107); CREATININE 1.35 mg/dL (0.70-1.30); GLUCOSE RANDOM 102 mg/dL (70-99); MAGNESIUM 1.6 mg/dL (1.8-2.4); POTASSIUM,K 3.4 mmol/L (3.5-5.1); PROTEIN TOTAL,TP 7.4 g/dL (6.4-8.2); SODIUM,NA 135 mmol/L (136-145); TSH ULTRASENSITIVE 3.82 uIU/mL (0.36-3.74)
[2022-10-28 12:58] LABS: ESTIMATED GFR 60 mL/min (>=60); ETHANOL BLOOD MEDICAL < 3 mg/dL (0)
[2022-10-28] MEDS ORDERED: Meclizine 12.5 MG Tab PO ONE (12:58)
[2022-10-28] MEDS ORDERED: Dexamethasone 4 MG/ML SDV IVPUSH ONE (12:59)
[2022-10-28 14:00] LABS: APPEARANCE,URINE CLEAR (CLEAR); BILIRUBIN,URINE MODERATE (NEGATIVE); COLOR,URINE YELLOW (YELLOW); GLUCOSE,URINE 500 (NEGATIVE); KETONES,URINE TRACE (NEGATIVE); LEUKOCYTE ESTERASE,URINE NEGATIVE (NEGATIVE); NITRITE,URINE NEGATIVE (NEGATIVE); OCCULT BLOOD,URINE NEGATIVE (NEGATIVE); PROTEIN,URINE 100 (NEGATIVE)
[2022-10-28 14:04] LABS: AMPHETAMINES,URINE NEGATIVE (NEGATIVE); BARBITURATES,URINE NEGATIVE (NEGATIVE); BENZODIAZEPINE,URINE POSITIVE (NEGATIVE); MDMA (ECSTASY), URINE NEGATIVE (NEGATIVE); METHADONE,URINE NEGATIVE (NEGATIVE); METHAMPHETAMINES,URINE NEGATIVE (NEGATIVE); OPIATES,URINE NEGATIVE (NEGATIVE); OXYCODONE,URINE NEGATIVE (NEGATIVE); PHENCYCLIDINE,URINE NEGATIVE (NEGATIVE); TCA,URINE NEGATIVE (NEGATIVE)
[2022-10-28 14:24] LABS: AMORPHOUS SEDIMENT,URINE FEW /HPF (NOT SEEN); BACTERIA,URINE FEW /HPF (0-FEW/HPF); EPITHELIAL CELLS,URINE FEW /HPF (NOT SEEN); MUCUS,URINE MODERATE /LPF (NOT SEEN); WBC,URINE 0-5 /HPF (0-5/HPF)
[2022-10-28] MEDS ORDERED: Ondansetron 4 MG Tab.DIS PO PRN (16:24)
[2022-10-28] MEDS ORDERED: Acetaminophen 325 MG Tab PO PRN (16:24)
[2022-10-28] MEDS ORDERED: Docusate Sodium 100 MG Cap PO PRN (16:24)
[2022-10-28] MEDS ORDERED: 50% Dextrose in Water 50 ML Syringe IVPUSH PRN (16:41)
[2022-10-28] MEDS ORDERED: Glucagon,Human Recombinant 1 MG Vial IM PRN (16:41)
[2022-10-28] MEDS ORDERED: Potassium Chloride 10 MEQ Tab.ER PO ONE (16:43)
[2022-10-28] MEDS: LORazepam 0.5 MG Tab PO PRN (16:55)
[2022-10-28] MEDS: Acetaminophen/HYDROcodone 325-5 MG Tab PO PRN ×2 (16:56→21:11)
[2022-10-28] MEDS: Insulin Lispro 100 Units/ML 3 ML Vial SUBCUT SCH ×2 (18:06→21:06)
[2022-10-28] MEDS: Gadobenate Dimeglumine 529 MG/ML 20 ML SDV IVPUSH ONE ×2 (18:10→20:05)
[2022-10-28] MEDS: Sodium Chloride 0.9% 1,000 ML IV SCH (20:12)
[2022-10-28] MEDS ORDERED: Albuterol 6.7 GM Inhaler INH PRN (20:23)
[2022-10-28] MEDS ORDERED: Nitroglycerin 0.4 MG Tab.SL SL PRN (20:23)
[2022-10-28] MEDS ORDERED: methylPREDNISolone 4 MG Tab 21 Tab/Dosepak PO SCH (20:30)
[2022-10-28] MEDS: Meclizine 12.5 MG Tab PO SCH (20:38)
[2022-10-28] MEDS: LORazepam 1 MG Tab PO SCH (20:38)
[2022-10-28] MEDS: Thiamine 100 MG Tab PO SCH (20:38)
[2022-10-28] MEDS: Aspirin 81 MG Tab.Chew PO SCH (20:38)
[2022-10-28] MEDS ORDERED: Albuterol 0.083% 2.5 MG/3 ML Neb Soln INH PRN (20:42)
[2022-10-28] MEDS: Formoterol/Mometasone 200-5 MCG 8.8 GM Inhaler IH SCH (21:02)
[2022-10-28] MEDS: Magnesium Oxide 400 MG Tab PO SCH (21:04)
[2022-10-28] MEDS: Insulin Glarg,Human.Rec.Analog 100 Unit/ML SUBCUT SCH (21:04)
[2022-10-29] MEDS: Acetaminophen/HYDROcodone 325-5 MG Tab PO PRN ×3 (04:08→17:02)
[2022-10-29] MEDS: LORazepam 0.5 MG Tab PO PRN (04:09)
[2022-10-29] MEDS: Sodium Chloride 0.9% 1,000 ML IV SCH ×2 (04:10→12:54)
[2022-10-29] MEDS: glipiZIDE 5 MG Tab.ER PO SCH (08:16)
[2022-10-29] MEDS: Insulin Lispro 100 Units/ML 3 ML Vial SUBCUT SCH ×4 (08:16→20:58)
[2022-10-29] MEDS: Spironolactone 25 MG Tab PO SCH (08:17)
[2022-10-29] MEDS: Metoprolol Succinate 50 MG Tab.ER PO SCH (08:17)
[2022-10-29] MEDS: Meclizine 12.5 MG Tab PO SCH ×3 (08:17→20:53)
[2022-10-29] MEDS: metFORMIN 500 MG Tab PO SCH ×2 (08:17→17:03)
[2022-10-29] MEDS: Isosorbide Mononitrate 30 MG Tab.ER PO SCH (08:18)
[2022-10-29] MEDS: Multivitamin Tab PO SCH (08:18)
[2022-10-29] MEDS: Fludrocortisone 0.1 MG Tab PO SCH ×2 (08:18→17:03)
[2022-10-29] MEDS: Folic Acid 1 MG Tab PO SCH (08:19)
[2022-10-29] MEDS: LORazepam 1 MG Tab PO SCH ×2 (08:19→20:51)
[2022-10-29] MEDS: Verapamil 240 MG Tab.ER PO SCH (08:20)
[2022-10-29] MEDS: Insulin Glarg,Human.Rec.Analog 100 Unit/ML SUBCUT SCH ×2 (08:20→20:59)
[2022-10-29] MEDS: Formoterol/Mometasone 200-5 MCG 8.8 GM Inhaler IH SCH ×2 (08:20→20:53)
[2022-10-29] MEDS: Magnesium Oxide 400 MG Tab PO SCH ×2 (08:21→20:54)
[2022-10-29] MEDS: Enoxaparin 40 MG/0.4 ML Syringe SUBCUT SCH (08:21)
[2022-10-29] MEDS: Aspirin 81 MG Tab.Chew PO SCH (20:51)
[2022-10-29] MEDS: Thiamine 100 MG Tab PO SCH (20:51)
[2022-10-30] MEDS: Sodium Chloride 0.9% 1,000 ML IV SCH (02:29)
[2022-10-30 06:27] LABS: BASOPHILS PERCENT AUTO 0.1 % (0.0-1.0); EOSINOPHILS PERCENT AUTO 0.1 % (1.0-3.0); HEMATOCRIT 36.5 % (40.0-54.0); HEMOGLOBIN 13.1 g/dL (14.0-18.0); LYMPHOCYTES PERCENT AUTO 22.2 % (20.5-50.1); MEAN CORPUSCULAR HEMOGLOBIN 31.3 pg (27.0-34.0); MEAN CORPUSCULAR HGB CONC 35.9 g/dL (33.0-35.0); MEAN CORPUSCULAR VOLUME 87.3 fL (80-100); MONOCYTES PERCENT AUTO 13.2 % (2-8); NEUTROPHILS PERCENT AUTO 64.4 % (42.2-75.2); PLATELET COUNT,PLT 149 10^3/uL (150-450); RED BLOOD CELL COUNT 4.18 10^6/uL (4.6-6.2); WHITE BLOOD CELL COUNT,WBC 6.9 10^3/uL (5.0-10.0)
[2022-10-30 06:36] LABS: ANION GAP 13.2 mEq/L (7-13); CALCIUM 7.9 mg/dL (8.5-10.1); CREATININE 0.85 mg/dL (0.70-1.30); EST CRCL DRUG DOSING (CG) 111.84 mL/min; POTASSIUM,K 3.2 mmol/L (3.5-5.1)
[2022-10-30] MEDS: Fludrocortisone 0.1 MG Tab PO SCH (08:06)
[2022-10-30] MEDS: Magnesium Oxide 400 MG Tab PO SCH ×2 (08:07→20:22)
[2022-10-30] MEDS: LORazepam 1 MG Tab PO SCH ×2 (08:07→21:19)
[2022-10-30] MEDS: Folic Acid 1 MG Tab PO SCH (08:07)
[2022-10-30] MEDS: metFORMIN 500 MG Tab PO SCH ×2 (08:07→17:47)
[2022-10-30] MEDS: Isosorbide Mononitrate 30 MG Tab.ER PO SCH (08:07)
[2022-10-30] MEDS: Spironolactone 25 MG Tab PO SCH (08:07)
[2022-10-30] MEDS: Multivitamin Tab PO SCH (08:08)
[2022-10-30] MEDS: Verapamil 240 MG Tab.ER PO SCH (08:08)
[2022-10-30] MEDS: Metoprolol Succinate 50 MG Tab.ER PO SCH (08:08)
[2022-10-30] MEDS: Enoxaparin 40 MG/0.4 ML Syringe SUBCUT SCH (08:09)
[2022-10-30] MEDS: Insulin Lispro 100 Units/ML 3 ML Vial SUBCUT SCH ×4 (08:09→20:29)
[2022-10-30] MEDS: glipiZIDE 5 MG Tab.ER PO SCH (08:09)
[2022-10-30] MEDS: Insulin Glarg,Human.Rec.Analog 100 Unit/ML SUBCUT SCH ×2 (08:10→20:27)
[2022-10-30] MEDS: Formoterol/Mometasone 200-5 MCG 8.8 GM Inhaler IH SCH ×2 (08:10→20:27)
[2022-10-30] MEDS ORDERED: Potassium Chloride 10 MEQ Tab.ER PO ONE (08:15)
[2022-10-30] MEDS: Meclizine 12.5 MG Tab PO SCH ×3 (10:10→20:22)
[2022-10-30] MEDS: methylPREDNISolone 4 MG Tab 21 Tab/Dosepak PO SCH ×4 (10:10→21:19)
[2022-10-30] MEDS: Thiamine 100 MG Tab PO SCH (20:21)
[2022-10-30] MEDS: Aspirin 81 MG Tab.Chew PO SCH (20:21)
[2022-10-30] MEDS: Acetaminophen/HYDROcodone 325-5 MG Tab PO PRN (21:19)
[2022-10-31] MEDS ORDERED: Fludrocortisone 0.1 MG Tab PO SCH (08:00)
[2022-10-31] MEDS: glipiZIDE 5 MG Tab.ER PO SCH (08:07)
[2022-10-31] MEDS: Multivitamin Tab PO SCH (08:08)
[2022-10-31] MEDS: Verapamil 240 MG Tab.ER PO SCH (08:08)
[2022-10-31] MEDS: Folic Acid 1 MG Tab PO SCH (08:08)
[2022-10-31] MEDS: metFORMIN 500 MG Tab PO SCH (08:08)
[2022-10-31] MEDS: Meclizine 12.5 MG Tab PO SCH (08:09)
[2022-10-31] MEDS: LORazepam 1 MG Tab PO SCH (08:09)
[2022-10-31] MEDS: Metoprolol Succinate 50 MG Tab.ER PO SCH (08:10)
[2022-10-31] MEDS: Formoterol/Mometasone 200-5 MCG 8.8 GM Inhaler IH SCH (08:11)
[2022-10-31] MEDS: methylPREDNISolone 4 MG Tab 21 Tab/Dosepak PO SCH (08:11)
[2022-10-31] MEDS: Spironolactone 25 MG Tab PO SCH (08:16)
[2022-10-31] MEDS: Insulin Glarg,Human.Rec.Analog 100 Unit/ML SUBCUT SCH (08:17)
[2022-10-31] MEDS: Enoxaparin 40 MG/0.4 ML Syringe SUBCUT SCH (08:18)
[2022-10-31] MEDS: Insulin Lispro 100 Units/ML 3 ML Vial SUBCUT SCH (08:18)
[2022-10-31] MEDS: Magnesium Oxide 400 MG Tab PO SCH (08:19)
[2022-10-31] MEDS ORDERED: Isosorbide Mononitrate 60 MG Tab.ER PO SCH (09:00)
[2022-10-31 10:17] VITALS: BP 128/87; PULSE 90
== END 2022-10-31 10:15 | disposition home or self-care (01) | DRG 312 ==
LOC: DL.ED 11:56 → DL.MS 15:50 → OBSVTOIN 16:24
PROVIDERS: ADMIT Internal Medicine; ATTEND Internal Medicine
DX: I95.1 Orthostatic hypotension (principal); E87.1 Hypo-osmolality and hyponatremia; F48.8 Other specified nonpsychotic mental disorders; E11.9 Type 2 diabetes mellitus without complications; E87.6 Hypokalemia; E78.1 Pure hyperglyceridemia; E87.8 Other disorders of electrolyte and fluid balance, not elsewhere classified; F10.20 Alcohol dependence, uncomplicated; E86.0 Dehydration; I10 Essential (primary) hypertension; E78.5 Hyperlipidemia, unspecified; J44.9 Chronic obstructive pulmonary disease, unspecified; I25.10 Atherosclerotic heart disease of native coronary artery without angina pectoris; M17.10 Unilateral primary osteoarthritis, unspecified knee; Z79.899 Other long term (current) drug therapy; Z87.891 Personal history of nicotine dependence; Z98.890 Other specified postprocedural states
CPT/HCPCS: 36415; 70450; 70553; 71045; 73620-LT; 80048; 80053; 80305-QW; 80307; 81001; 82947; 83605; 83735; 84145; 84443; 84484; 85025; 85610; 85730; 93005; 96361; 96365; 96375; 97110-GP; 97161-GP; 97165-GO; 97530-GO; 97530-GP; 99285-25; A9270-GY; A9577; C1758; G0378; J1100; J1650; J1815-GY; J3360; J3411; J3490; J7030; J7509

== ENCOUNTER 2023-01-03 09:28 | Observation (INO) | payer MEDICAID ==
[2023-01-03] MEDS ORDERED: Sodium Chloride 0.9% 1,000 ML IV ONE ×2 (09:37→09:48)
[2023-01-03 09:48] LABS: BASOPHILS PERCENT AUTO 0.3 % (0.0-1.0); EOSINOPHILS PERCENT AUTO 0.7 % (1.0-3.0); HEMATOCRIT 42.5 % (40.0-54.0); HEMOGLOBIN 15.3 g/dL (14.0-18.0); LYMPHOCYTES PERCENT AUTO 34.4 % (20.5-50.1); MEAN CORPUSCULAR HEMOGLOBIN 31.1 pg (27.0-34.0); MEAN CORPUSCULAR VOLUME 86.4 fL (80-100); MONOCYTES PERCENT AUTO 14.8 % (2-8); NEUTROPHILS PERCENT AUTO 49.8 % (42.2-75.2); PLATELET COUNT,PLT 175 10^3/uL (150-450); RED BLOOD CELL COUNT 4.92 10^6/uL (4.6-6.2); WHITE BLOOD CELL COUNT,WBC 8.8 10^3/uL (5.0-10.0)
[2023-01-03] MEDS ORDERED: Thiamine 100 MG in Sodium Chloride 0.9% 100 ML IV ONE (09:48)
[2023-01-03 10:09] LABS: ALANINE AMINOTRANSFERASE,ALT 44 U/L (16-63); ALBUMIN 3.9 g/dL (3.4-5.0); ALKALINE PHOSPHATASE 70 U/L (46-116); ANION GAP 25.7 mEq/L (7-13); ASPARTATE AMNIOTRANSFERASE,AST 23 U/L (15-37); BILIRUBIN TOTAL 1.2 mg/dL (0.2-1.0); BLOOD UREA NITROGEN,BUN 24 mg/dL (7-18); BUN/CREATININE RATIO 17.5 (No establ ref range); CARBON DIOXIDE,CO2 18 mmol/L (21-32); CHLORIDE,CL 92 mmol/L (98-107); CREATININE 1.37 mg/dL (0.70-1.30); EST CRCL DRUG DOSING (CG) 69.39 mL/min; GLUCOSE RANDOM 357 mg/dL (70-99); MAGNESIUM 1.8 mg/dL (1.8-2.4); POTASSIUM,K 3.7 mmol/L (3.5-5.1); PROTEIN TOTAL,TP 7.8 g/dL (6.4-8.2); SODIUM,NA 132 mmol/L (136-145)
[2023-01-03] MEDS: Sodium Chloride 0.9% 10 ML Syringe FLUSH PRN (10:09)
[2023-01-03 10:12] LABS: ESTIMATED GFR 59 mL/min (>=60)
[2023-01-03 10:13] LABS: ETHANOL BLOOD MEDICAL < 3 mg/dL (0)
[2023-01-03 11:16] LABS: APPEARANCE,URINE CLEAR (CLEAR); BILIRUBIN,URINE SMALL (NEGATIVE); COLOR,URINE YELLOW (YELLOW); GLUCOSE,URINE 500 (NEGATIVE); KETONES,URINE >=160 (NEGATIVE); LEUKOCYTE ESTERASE,URINE NEGATIVE (NEGATIVE); NITRITE,URINE NEGATIVE (NEGATIVE); OCCULT BLOOD,URINE NEGATIVE (NEGATIVE); PROTEIN,URINE NEGATIVE (NEGATIVE); UROBILINOGEN,URINE 0.2 mg/dL (0.2-1.0)
[2023-01-03 11:18] LABS: AMPHETAMINES,URINE NEGATIVE (NEGATIVE); BARBITURATES,URINE NEGATIVE (NEGATIVE); BENZODIAZEPINE,URINE NEGATIVE (NEGATIVE); MDMA (ECSTASY), URINE NEGATIVE (NEGATIVE); METHADONE,URINE NEGATIVE (NEGATIVE); METHAMPHETAMINES,URINE NEGATIVE (NEGATIVE); OPIATES,URINE NEGATIVE (NEGATIVE); OXYCODONE,URINE NEGATIVE (NEGATIVE); PHENCYCLIDINE,URINE NEGATIVE (NEGATIVE); TCA,URINE NEGATIVE (NEGATIVE)
[2023-01-03] MEDS ORDERED: 50% Dextrose in Water 50 ML Syringe IVPUSH PRN (14:04)
[2023-01-03] MEDS ORDERED: Glucagon,Human Recombinant 1 MG Vial IM PRN (14:04)
[2023-01-03] MEDS ORDERED: Insulin Glarg,Human.Rec.Analog 100 Unit/ML SUBCUT ONE (14:32)
[2023-01-03] MEDS ORDERED: Sennosides/Docusate Sodium 50-8.6 MG Tab PO PRN (15:49)
[2023-01-03] MEDS ORDERED: Magnesium Hydroxide 400 MG/5 ML Susp 30 ML Cup PO PRN (15:49)
[2023-01-03] MEDS ORDERED: Albuterol/Ipratropium 3.0-0.5 MG/3 ML Neb Soln NEB PRN (15:49)
[2023-01-03] MEDS ORDERED: Polyethylene Glycol 3350 Powder 17 GM Packet PO PRN (15:49)
[2023-01-03] MEDS ORDERED: HYDROmorphone 0.5 MG/0.5 ML Syringe IVPUSH PRN (15:49)
[2023-01-03] MEDS ORDERED: Acetaminophen/HYDROcodone 325-10 MG Tab PO PRN (15:49)
[2023-01-03] MEDS ORDERED: Acetaminophen 325 MG Tab PO PRN (15:49)
[2023-01-03] MEDS ORDERED: Ondansetron 4 MG/2 ML SDV IVPUSH PRN (15:49)
[2023-01-03] MEDS: Insulin Lispro 100 Units/ML 3 ML Vial SUBCUT SCH (17:41)
[2023-01-03] MEDS ORDERED: Midodrine 5 MG Tab PO PRN (19:49)
[2023-01-03] MEDS: DOCUSATE SODIUM 100 MG PO SCH (20:48)
[2023-01-03] MEDS: MAGNESIUM OXIDE 400 MG PO SCH (20:55)
[2023-01-03] MEDS: PHOS PO SCH (20:56)
[2023-01-03] MEDS: [UNRECOGNIZED DRUG - OTHER] PO SCH (20:56)
[2023-01-03] MEDS: KPHOS PO SCH (20:56)
[2023-01-03] MEDS: FORMOTEROL INH SCH (20:57)
[2023-01-03] MEDS: MOMETASONE INH SCH (20:57)
[2023-01-03] MEDS ORDERED: ROSUVASTATIN 40 MG PO SCH (21:00)
[2023-01-03] MEDS ORDERED: MONTELUKAST SODIUM 10 MG PO SCH (21:00)
[2023-01-03] MEDS: Insulin Glarg,Human.Rec.Analog 100 Unit/ML SUBCUT SCH (21:00)
[2023-01-04 06:06] LABS: BASOPHILS PERCENT AUTO 0.4 % (0.0-1.0); EOSINOPHILS PERCENT AUTO 1.6 % (1.0-3.0); HEMATOCRIT 37.1 % (40.0-54.0); HEMOGLOBIN 13.6 g/dL (14.0-18.0); LYMPHOCYTES PERCENT AUTO 26.9 % (20.5-50.1); MEAN CORPUSCULAR HEMOGLOBIN 31.1 pg (27.0-34.0); MEAN CORPUSCULAR HGB CONC 36.7 g/dL (33.0-35.0); MEAN CORPUSCULAR VOLUME 84.7 fL (80-100); MONOCYTES PERCENT AUTO 17.4 % (2-8); NEUTROPHILS PERCENT AUTO 53.7 % (42.2-75.2); PLATELET COUNT,PLT 129 10^3/uL (150-450); RED BLOOD CELL COUNT 4.38 10^6/uL (4.6-6.2)
[2023-01-04] MEDS: MOMETASONE INH SCH ×2 (06:17→09:04)
[2023-01-04] MEDS: FORMOTEROL INH SCH ×2 (06:17→09:04)
[2023-01-04] MEDS: TIOTROPIUM BROMIDE INH SCH ×2 (06:18→09:04)
[2023-01-04 06:29] LABS: ALBUMIN 3.4 g/dL (3.4-5.0); ANION GAP 14.2 mEq/L (7-13); BILIRUBIN TOTAL 0.7 mg/dL (0.2-1.0); BUN/CREATININE RATIO 16.5 (No establ ref range); CALCIUM 8.3 mg/dL (8.5-10.1); CREATININE 0.85 mg/dL (0.70-1.30); EST CRCL DRUG DOSING (CG) 111.84 mL/min; MAGNESIUM 1.7 mg/dL (1.8-2.4); POTASSIUM,K 3.2 mmol/L (3.5-5.1); PROTEIN TOTAL,TP 6.8 g/dL (6.4-8.2)
[2023-01-04] MEDS ORDERED: Midodrine 2.5 MG Tab ONE (08:18)
[2023-01-04 08:23] VITALS: BP 151/93; PULSE 77
[2023-01-04] MEDS ORDERED: Magnesium Sulfate/Water 2 GM in Premix Bag 1 BAG IV ONE (08:25)
[2023-01-04] MEDS ORDERED: Potassium Chloride 10 MEQ Tab.ER PO SCH (08:30)
[2023-01-04] MEDS ORDERED: CHOLECALCIFEROL 25 MCG PO SCH (09:00)
[2023-01-04] MEDS ORDERED: Aspirin 81 MG Tab.Chew PO SCH (09:00)
[2023-01-04] MEDS ORDERED: Loratadine 10 MG Tab PO SCH (09:00)
[2023-01-04] MEDS ORDERED: KCL 20 MEQ PO SCH (09:00)
[2023-01-04] MEDS ORDERED: FENOFIBRIC ACID 45 MG PO SCH (09:00)
[2023-01-04] MEDS ORDERED: VENLAFAXINE 75 MG PO SCH (09:00)
[2023-01-04] MEDS ORDERED: OMEPRAZOLE 20 MG PO SCH (09:00)
[2023-01-04] MEDS ORDERED: ALOGLIPTIN 25 MG PO SCH (09:00)
[2023-01-04] MEDS ORDERED: GLIPIZIDE 10 MG PO SCH (09:00)
[2023-01-04] MEDS: Sodium Chloride 0.9% 10 ML Syringe FLUSH PRN (09:08)
[2023-01-04] MEDS: Insulin Lispro 100 Units/ML 3 ML Vial SUBCUT SCH (09:42)
[2023-01-04] MEDS: Insulin Glarg,Human.Rec.Analog 100 Unit/ML SUBCUT SCH (09:43)
[2023-01-04] MEDS: KPHOS PO SCH (09:48)
[2023-01-04] MEDS: [UNRECOGNIZED DRUG - OTHER] PO SCH (09:48)
[2023-01-04] MEDS: PHOS PO SCH (09:48)
[2023-01-04] MEDS: MAGNESIUM OXIDE 400 MG PO SCH (09:49)
[2023-01-04] MEDS: DOCUSATE SODIUM 100 MG PO SCH (09:50)
== END 2023-01-04 11:18 | disposition home or self-care (01) ==
LOC: DL.ED 09:28 → DL.MS 12:04 → DL.ED 12:30
PROVIDERS: ADMIT Internal Medicine; ATTEND Internal Medicine
DX: I95.1 Orthostatic hypotension (principal); E87.1 Hypo-osmolality and hyponatremia; E87.8 Other disorders of electrolyte and fluid balance, not elsewhere classified; E11.10 Type 2 diabetes mellitus with ketoacidosis without coma; N17.9 Acute kidney failure, unspecified; E11.65 Type 2 diabetes mellitus with hyperglycemia; I42.2 Other hypertrophic cardiomyopathy; I27.20 Pulmonary hypertension, unspecified; R59.0 Localized enlarged lymph nodes; E11.42 Type 2 diabetes mellitus with diabetic polyneuropathy; I10 Essential (primary) hypertension; I25.10 Atherosclerotic heart disease of native coronary artery without angina pectoris; J44.9 Chronic obstructive pulmonary disease, unspecified; E78.00 Pure hypercholesterolemia, unspecified; E55.9 Vitamin D deficiency, unspecified; K21.9 Gastro-esophageal reflux disease without esophagitis; F32.A Depression, unspecified; E66.9 Obesity, unspecified; Z79.4 Long term (current) use of insulin; Z95.5 Presence of coronary angioplasty implant and graft; Z79.899 Other long term (current) drug therapy; Z79.82 Long term (current) use of aspirin; E80.6 Other disorders of bilirubin metabolism; Z79.84 Long term (current) use of oral hypoglycemic drugs; Z68.26 Body mass index [BMI] 26.0-26.9, adult
CPT/HCPCS: 36415; 71045; 80053; 80305-QW; 80307; 81003; 82009; 82800; 82947; 83605; 83735; 84145; 84484; 85025; 93005; 93010; 94664; 96361; 96365; 96366; 96367; 99223; 99238; 99285; 99285-25; A9270-GY; G0378; J1815-GY; J3411; J3475; J3490; J7030

== ENCOUNTER 2023-03-31 10:06 | Emergency (ER) | payer MEDICAID ==
[2023-03-31 10:23] LABS: BASOPHILS PERCENT AUTO 0.7 % (0.0-1.0); EOSINOPHILS PERCENT AUTO 0.5 % (1.0-3.0); HEMATOCRIT 44.3 % (40.0-54.0); HEMOGLOBIN 15.7 g/dL (14.0-18.0); LYMPHOCYTES PERCENT AUTO 19.5 % (20.5-50.1); MEAN CORPUSCULAR HEMOGLOBIN 31.9 pg (27.0-34.0); MEAN CORPUSCULAR HGB CONC 35.4 g/dL (33.0-35.0); MONOCYTES PERCENT AUTO 15.9 % (2-8); NEUTROPHILS PERCENT AUTO 63.4 % (42.2-75.2); PLATELET COUNT,PLT 201 10^3/uL (150-450); RED BLOOD CELL COUNT 4.92 10^6/uL (4.6-6.2); WHITE BLOOD CELL COUNT,WBC 5.6 10^3/uL (5.0-10.0)
[2023-03-31 10:41] LABS: PROTHROMBIN TIME 9.8 SEC (9.0-12.0); PTT,PARTIAL THROMBOPLSTIN TIME 25.9 SEC (22.0-34.0)
[2023-03-31 10:46] LABS: A/G RATIO 0.9; ALBUMIN 3.6 g/dL (3.4-5.0); ANION GAP 8.4 mEq/L (7-13); BILIRUBIN TOTAL 0.5 mg/dL (0.2-1.0); BUN/CREATININE RATIO 10.6 (No establ ref range); CALCIUM 9.3 mg/dL (8.5-10.1); CREATININE 0.94 mg/dL (0.70-1.30); EST CRCL DRUG DOSING (CG) 99.88 mL/min; POTASSIUM,K 3.4 mmol/L (3.5-5.1); PROTEIN TOTAL,TP 7.8 g/dL (6.4-8.2)
[2023-03-31] MEDS: Nitroglycerin 0.4 MG Tab.SL SL ONE ×2 (12:24→12:30)
[2023-03-31 12:43] VITALS: BP 142/95; PULSE 87
== END 2023-03-31 15:32 ==
LOC: DL.ED 10:06
DX: I25.110 Atherosclerotic heart disease of native coronary artery with unstable angina pectoris (principal); E78.00 Pure hypercholesterolemia, unspecified; I10 Essential (primary) hypertension; J44.9 Chronic obstructive pulmonary disease, unspecified; E11.9 Type 2 diabetes mellitus without complications; Z79.4 Long term (current) use of insulin; Z79.82 Long term (current) use of aspirin; Z79.84 Long term (current) use of oral hypoglycemic drugs; Z79.899 Other long term (current) drug therapy
CPT/HCPCS: 36415; 71045; 80053; 83690; 83880; 84484; 85025; 85610; 85730; 93005; 93010; 99285; A9270-GY

== ENCOUNTER 2023-09-01 10:49 | Emergency (ER) | payer MEDICAID ==
[~2023-09-01 10:49] MED LIST changes: +50% Dextrose in Water 50 ML Syringe IVPUSH PRN; +Glucagon,Human Recombinant 1 MG Vial IM PRN; -Sodium Chloride 0.9% 10 ML Syringe FLUSH PRN
[2023-09-01] MEDS: Insulin Regular, Human 100 Units/ML 3 ML Vial IV ONE (10:58)
[2023-09-01] MEDS: Sodium Chloride 0.9% 1,000 ML IV ONE ×4 (11:00→13:24)
[2023-09-01 11:04] LABS: BASE EXCESS ARTERIAL -28 mmol/L ((-2)-(+3)); BICARBONATE,ARTERIAL 3.1 mmol/L (22-26); O2 DELIVERY DEVICE ROOM AIR; O2 SATURATION ARTERIAL 98 % (95-100); PO2 ARTERIAL 125 mmHg (70-100)
[2023-09-01 11:06] LABS: PH,ARTERIAL 7.07 (7.35-7.45)
[2023-09-01] MEDS ORDERED: 50% Dextrose in Water 50 ML Syringe IVPUSH PRN (11:06)
[2023-09-01] MEDS ORDERED: Glucagon,Human Recombinant 1 MG Vial IM PRN (11:06)
[2023-09-01 11:07] LABS: ALLEN TEST PERFORMED; PCO2 ARTERIAL 11 mmHg (35-45)
[2023-09-01 11:12] LABS: HEMATOCRIT 47.6 % (40.0-54.0); HEMOGLOBIN 16.4 g/dL (14.0-18.0); MEAN CORPUSCULAR HEMOGLOBIN 31.1 pg (27.0-34.0); MEAN CORPUSCULAR HGB CONC 34.5 g/dL (33.0-35.0); MEAN CORPUSCULAR VOLUME 90.2 fL (80-100); PLATELET COUNT,PLT 152 10^3/uL (150-450); RED BLOOD CELL COUNT 5.28 10^6/uL (4.6-6.2); WHITE BLOOD CELL COUNT,WBC 13.3 10^3/uL (5.0-10.0)
[2023-09-01 11:18] LABS: BASOPHILS PERCENT AUTO 0.2 % (0.0-1.0); EOSINOPHILS PERCENT AUTO 0.1 % (1.0-3.0); LYMPHOCYTES PERCENT AUTO 5.4 % (20.5-50.1); MONOCYTES PERCENT AUTO 19.5 % (2-8); NEUTROPHILS PERCENT AUTO 74.8 % (42.2-75.2)
[2023-09-01 11:26] LABS: KETONES,BLOOD MODERATE-40 mg/dL
[2023-09-01 11:36] LABS: BAND PERCENT MAN 4 %; SEG NEUTROPHILS PERCENT MAN 78 % (42-75)
[2023-09-01 11:37] LABS: LACTIC ACID 2.4 mmol/L (0.4-2.0); LYMPHOCYTES PERCENT MAN 4 % (20-50); MONOCYTES PERCENT MAN 14 % (2-8)
[2023-09-01 11:38] LABS: B-TYPE NATRIURETIC PEPTIDE,BNP 169 pg/ml (0-100)
[2023-09-01 11:42] LABS: ALANINE AMINOTRANSFERASE,ALT 14 U/L (16-63); ALBUMIN 3.3 g/dL (3.4-5.0); ALKALINE PHOSPHATASE 61 U/L (46-116); ASPARTATE AMNIOTRANSFERASE,AST 10 U/L (15-37); BLOOD UREA NITROGEN,BUN 95 mg/dL (7-18); BUN/CREATININE RATIO 27.5 (No establ ref range); CALCIUM 8.8 mg/dL (8.5-10.1); CHLORIDE,CL 93 mmol/L (98-107); CREATININE 3.46 mg/dL (0.70-1.30); MAGNESIUM 3.3 mg/dL (1.8-2.4); PHOSPHORUS 6.8 mg/dL (2.6-4.7); PROTEIN TOTAL,TP 6.9 g/dL (6.4-8.2); SODIUM,NA 131 mmol/L (136-145)
[2023-09-01 11:43] LABS: CARBON DIOXIDE,CO2 8 mmol/L (21-32); PROTHROMBIN TIME 10.2 SEC (9.0-12.0); PTT,PARTIAL THROMBOPLSTIN TIME 22.9 SEC (22.0-34.0)
[2023-09-01 11:44] LABS: A/G RATIO 0.92; ESTIMATED GFR 19 mL/min (>=60); GLUCOSE RANDOM 643 mg/dL (70-99)
[2023-09-01 11:45] LABS: ETHANOL BLOOD MEDICAL < 3 mg/dL (0); LIPASE > 250 U/L (16-77)
[2023-09-01 11:49] LABS: APPEARANCE,URINE CLEAR (CLEAR); BILIRUBIN,URINE SMALL (NEGATIVE); COLOR,URINE YELLOW (YELLOW); GLUCOSE,URINE 500 (NEGATIVE); KETONES,URINE 80 (NEGATIVE); LEUKOCYTE ESTERASE,URINE NEGATIVE (NEGATIVE); NITRITE,URINE NEGATIVE (NEGATIVE); OCCULT BLOOD,URINE SMALL (NEGATIVE); PH,URINE 5.5 (5.0-9.0); PROTEIN,URINE 30 (NEGATIVE); UROBILINOGEN,URINE 0.2 mg/dL (0.2-1.0)
[2023-09-01 11:51] LABS: AMPHETAMINES,URINE NEGATIVE (NEGATIVE); BARBITURATES,URINE NEGATIVE (NEGATIVE); BENZODIAZEPINE,URINE NEGATIVE (NEGATIVE); MDMA (ECSTASY), URINE NEGATIVE (NEGATIVE); METHADONE,URINE NEGATIVE (NEGATIVE); METHAMPHETAMINES,URINE NEGATIVE (NEGATIVE); OPIATES,URINE NEGATIVE (NEGATIVE); OXYCODONE,URINE NEGATIVE (NEGATIVE); PHENCYCLIDINE,URINE NEGATIVE (NEGATIVE); TCA,URINE NEGATIVE (NEGATIVE)
[2023-09-01 12:00] LABS: BACTERIA,URINE FEW /HPF (0-FEW/HPF); EPITHELIAL CELLS,URINE FEW /HPF (NOT SEEN); RBC,URINE 0-5 /HPF (0-5); WBC,URINE 0-5 /HPF (0-5/HPF)
[2023-09-01 12:28] LABS: CORONAVIRUS COVID-19 NAA NEGATIVE (NEGATIVE); INFLUENZA A NAA NEGATIVE (NEGATIVE); INFLUENZA B NAA NEGATIVE (NEGATIVE); RESPIRATORY SYNCYTIAL VIR NAA NEGATIVE (NEGATIVE)
[2023-09-01 13:10] VITALS: BP 90/65; PULSE 106
[2023-09-01] MEDS: Sodium Chloride 0.9% 10 ML Syringe FLUSH PRN (13:25)
== END 2023-09-01 13:46 ==
LOC: DL.ED 10:49
DX: K85.20 Alcohol induced acute pancreatitis without necrosis or infection (principal); E11.10 Type 2 diabetes mellitus with ketoacidosis without coma; R79.89 Other specified abnormal findings of blood chemistry; F10.10 Alcohol abuse, uncomplicated; I10 Essential (primary) hypertension; I25.10 Atherosclerotic heart disease of native coronary artery without angina pectoris; J45.909 Unspecified asthma, uncomplicated; E78.00 Pure hypercholesterolemia, unspecified; E11.9 Type 2 diabetes mellitus without complications; Z79.82 Long term (current) use of aspirin; Z79.2 Long term (current) use of antibiotics; Z79.4 Long term (current) use of insulin; Z79.899 Other long term (current) drug therapy
CPT/HCPCS: 0241U; 36415; 36600; 71045; 80053; 80305; 80307; 81001; 82009; 82803; 82947; 83605; 83690; 83735; 83880; 84100; 84145; 84484; 85025; 85610; 85730; 87040; 93005; 93010; 96360; 96361; 99285; C1758; J1815; J7030; J3490

== ENCOUNTER 2024-10-14 05:39 | Day surgery (SDC) | payer MEDICARE, OTHER ==
[~2024-10-14 05:39] MED LIST changes: -50% Dextrose in Water 50 ML Syringe IVPUSH PRN; -Glucagon,Human Recombinant 1 MG Vial IM PRN; +Propofol 200 MG/20 ML SDV ONE
[2024-10-14] MEDS ORDERED: Lidocaine 2% 20 ML MDV NERVRT ONE (05:40)
[2024-10-14] MEDS ORDERED: Lactated Ringers 1,000 ML IV ONE (05:40)
[2024-10-14] MEDS ORDERED: Propofol 200 MG/20 ML SDV IV ONE (05:40)
[2024-10-14] MEDS: Lactated Ringers 1,000 ML IV SCH (06:18)
[2024-10-14] MEDS ORDERED: Propofol 200 MG/20 ML SDV ONE (07:28)
[2024-10-14 08:39] VITALS: BP 120/78; PULSE 82
== END 2024-10-14 08:46 | disposition home or self-care (01) ==
LOC: DL.ENDO 05:39
PROVIDERS: ATTEND Internal Medicine Gastroenterology
DX: D12.4 Benign neoplasm of descending colon (principal); K57.31 Diverticulosis of large intestine without perforation or abscess with bleeding; K64.8 Other hemorrhoids; I10 Essential (primary) hypertension; K21.9 Gastro-esophageal reflux disease without esophagitis; E11.9 Type 2 diabetes mellitus without complications; J45.909 Unspecified asthma, uncomplicated
CPT/HCPCS: 45385; J2003; J2704; J7120; 00811; 88305

== ENCOUNTER 2024-11-01 05:55 | Day surgery (SDC) | payer MEDICARE, OTHER ==
[2024-11-01] MEDS ORDERED: Lidocaine 2% 20 ML MDV NERVRT ONE (05:56)
[2024-11-01] MEDS ORDERED: Propofol 200 MG/20 ML SDV IV ONE (05:56)
[2024-11-01] MEDS ORDERED: Lactated Ringers 1,000 ML IV ONE (05:56)
[2024-11-01] MEDS: Lactated Ringers 1,000 ML IV SCH (06:30)
[2024-11-01 08:18] VITALS: BP 157/85; PULSE 74
== END 2024-11-01 08:35 | disposition home or self-care (01) ==
LOC: DL.ENDO 05:55
PROVIDERS: ATTEND Internal Medicine Gastroenterology
DX: R12 Heartburn (principal); I10 Essential (primary) hypertension; E11.9 Type 2 diabetes mellitus without complications; E66.9 Obesity, unspecified; Z68.32 Body mass index [BMI] 32.0-32.9, adult
CPT/HCPCS: 43239; 88305; J2003; J2704; J7120